=== PATIENT | male | born 1990 | race African-American/Black ===

== ENCOUNTER 2017-11-06 23:47 | Emergency (ER) | payer BC, SELFPAY ==
[2017-11-07 00:15] LABS: #Basophils 0.1 thou/uL (0.0-0.2); #Eosinphils 0.5 thou/uL (0.0-0.7); #Lymphocytes 2.5 thou/uL (1.20-3.40); #Monocytes 0.6 thou/uL (0.11-0.59); #Neutrophils 4.4 thou/uL (1.40-6.50); %Basophils 0.9 % (0.0-1.0); %Lymphocytes 30.8 % (21.0-51.0); %Monocytes 7.7 % (0.0-10.0); %Neutrophils 54.7 % (42.0-75.0); Hemoglobin 13.5 g/dL (14.0-18.0); Mean Corpuscular HGB CONC 34.6 g/dL (32.0-36.0); Mean Corpuscular Hemoglobin 30.4 pg (27.0-31.0); Mean Corpuscular Volume 87.8 fl (80.0-94.0); Mean Platelet Volume 6.4 fL (7.4-10.4); Platelet Count 368 thou/uL (130-400); RBC Distribution Width 11.5 % (11.5-14.5); Red Blood Cell (RBC) Count 4.43 mill/uL (4.70-6.10)
[2017-11-07 00:40] LABS: Anion Gap 14 mmol/L (10-20); BUN (Urea Nitrogen) 13 mg/dL (8.9-20.6); Calc. Creatinine Clearance 0 mL/min (70-130); Calcium 10.3 mg/dL (7.8-10.44); Carbon Dioxide 27 mmol/L (22-29); Chloride 95 mmol/L (98-107); Estimated GFR-MDRD Greater than 90; Glucose 409 mg/dL (70-105); Potassium 4.3 mmol/L (3.5-5.1); Sodium 132 mmol/L (136-145)
[2017-11-07] MEDS ORDERED: Insulin Regular 300 UNITS/3 ML VIAL ONE (00:59)
== END 2017-11-07 03:15 | disposition home or self-care (01) ==
LOC: ERS 23:47
DX: E11.65 Type 2 diabetes mellitus with hyperglycemia (principal); E86.0 Dehydration; Z79.4 Long term (current) use of insulin; Z79.899 Other long term (current) drug therapy
CPT/HCPCS: 36415; 36416; 80048; 82010; 85025; 96360; 96361; 96372; J1815

== ENCOUNTER 2017-11-08 12:17 | Emergency (ER) | payer BC ==
[2017-11-08 14:05] LABS: #Basophils 0.1 thou/uL (0.0-0.2); #Eosinphils 0.2 thou/uL (0.0-0.7); #Lymphocytes 1.8 thou/uL (1.20-3.40); #Monocytes 0.4 thou/uL (0.11-0.59); #Neutrophils 5.8 thou/uL (1.40-6.50); %Basophils 0.8 % (0.0-1.0); %Lymphocytes 21.3 % (21.0-51.0); %Monocytes 5.3 % (0.0-10.0); %Neutrophils 69.7 % (42.0-75.0); Hemoglobin 14.4 g/dL (14.0-18.0); Mean Corpuscular Volume 88.8 fl (80.0-94.0); Mean Platelet Volume 6.7 fL (7.4-10.4); Platelet Count 367 thou/uL (130-400); RBC Distribution Width 11.6 % (11.5-14.5); Red Blood Cell (RBC) Count 4.64 mill/uL (4.70-6.10); White Blood Cell (WBC) Count 8.3 thou/uL (4.8-10.8)
[2017-11-08 14:24] LABS: ALT (SGPT) 39 U/L (8-55); AST (SGOT) 27 U/L (5-34); Albumin 4.7 g/dL (3.5-5.0); Alkaline Phosphatase 99 U/L (40-150); Anion Gap 15 mmol/L (10-20); BUN (Urea Nitrogen) 13 mg/dL (8.9-20.6); Bilirubin, Total 0.7 mg/dL (0.2-1.2); Calc. Creatinine Clearance 0 mL/min (70-130); Calcium 10.7 mg/dL (7.8-10.44); Carbon Dioxide 24 mmol/L (22-29); Chloride 99 mmol/L (98-107); Estimated GFR-MDRD Greater than 90; Globulin 3.9 g/dL (2.4-3.5); Glucose 352 mg/dL (70-105); Potassium 4.6 mmol/L (3.5-5.1); Protein, Total 8.6 g/dL (6.0-8.3); Sodium 133 mmol/L (136-145)
--- NOTE | 2017-11-08 15:35 | RAD ---
PORTABLE CHEST: History: Chest pain. Comparison: 08-21-16 FINDINGS: Lung solis appear clear. No infiltrate identified. Heart and mediastinum are unremarkable. IMPRESSION: No acute process. POS: [facility]
[2017-11-08 15:53] LABS: CKMB 2.1 ng/mL (0-6.6); Troponin I Less than 0.010 ng/mL (< 0.028)
== END 2017-11-08 16:41 | disposition home or self-care (01) ==
LOC: ERS 12:17
DX: E11.65 Type 2 diabetes mellitus with hyperglycemia (principal); R07.89 Other chest pain; Z79.899 Other long term (current) drug therapy; Z79.4 Long term (current) use of insulin
CPT/HCPCS: 36415; 36416; 71045; 80053; 82553; 84484; 85025; 93005; 96360

== ENCOUNTER 2018-04-19 15:30 | Emergency (ER) | payer BC ==
[2018-04-19] MEDS ORDERED: Ketorolac Tromethamine 30 MG/ML VIAL ONE (16:35)
== END 2018-04-19 17:22 | disposition home or self-care (01) ==
LOC: ERS 15:30
DX: R51 Headache (principal); E11.9 Type 2 diabetes mellitus without complications; Z79.4 Long term (current) use of insulin
CPT/HCPCS: 96372; J1885

== ENCOUNTER 2018-06-12 15:48 | Emergency (ER) | payer BC, SELFPAY ==
[2018-06-12] MEDS ORDERED: Metoclopramide HCl 10 MG/2 ML VIAL ONE (16:27)
[2018-06-12] MEDS ORDERED: Ketorolac Tromethamine 30 MG/ML VIAL ONE (16:27)
[2018-06-12] MEDS ORDERED: Acetaminophen 500 MG TAB ONE (16:27)
[2018-06-12] MEDS ORDERED: diphenhydrAMINE 50 MG/ML VIAL ONE (16:27)
== END 2018-06-12 17:36 | disposition home or self-care (01) ==
LOC: ERS 15:48
DX: G43.909 Migraine, unspecified, not intractable, without status migrainosus (principal); E11.9 Type 2 diabetes mellitus without complications; Z79.4 Long term (current) use of insulin; Z79.899 Other long term (current) drug therapy
CPT/HCPCS: 96365; 96375; J1200; J1885; J2765

== ENCOUNTER 2018-07-13 15:03 | Emergency (ER) | payer SELFPAY ==
[2018-07-13] MEDS ORDERED: Ondansetron ODT 4 MG TAB ONE (16:25)
[2018-07-13 16:37] LABS: #Basophils 0.1 thou/uL (0.0-0.2); #Eosinphils 0.2 thou/uL (0.0-0.7); #Lymphocytes 1.9 thou/uL (1.20-3.40); #Monocytes 0.5 thou/uL (0.11-0.59); #Neutrophils 4.4 thou/uL (1.40-6.50); %Basophils 1.4 % (0.0-1.0); %Eosinophils 2.4 % (0.0-10.0); %Lymphocytes 27.4 % (21.0-51.0); %Monocytes 7.3 % (0.0-10.0); %Neutrophils 61.6 % (42.0-75.0); Hemoglobin 14.7 g/dL (14.0-18.0); Mean Corpuscular HGB CONC 32.9 g/dL (32.0-36.0); Mean Platelet Volume 7.1 fL (7.4-10.4); Platelet Count 329 thou/uL (130-400); Red Blood Cell (RBC) Count 5.08 mill/uL (4.70-6.10); White Blood Cell (WBC) Count 7.1 thou/uL (4.8-10.8)
[2018-07-13 16:49] LABS: ALT (SGPT) 39 U/L (8-55); AST (SGOT) 21 U/L (5-34); Albumin 4.7 g/dL (3.5-5.0); Alkaline Phosphatase 108 U/L (40-150); Anion Gap 13 mmol/L (10-20); BUN (Urea Nitrogen) 12 mg/dL (8.9-20.6); Bilirubin, Total 0.7 mg/dL (0.2-1.2); Calc. Creatinine Clearance 0 mL/min (70-130); Calcium 10.5 mg/dL (7.8-10.44); Carbon Dioxide 28 mmol/L (22-29); Chloride 93 mmol/L (98-107); Estimated GFR-MDRD 79; Globulin 3.6 g/dL (2.4-3.5); Protein, Total 8.3 g/dL (6.0-8.3); Sodium 130 mmol/L (136-145)
[2018-07-13 16:51] LABS: Glucose 566 mg/dL (70-105)
[2018-07-13] MEDS ORDERED: Ibuprofen 200 MG TAB ONE (17:26)
== END 2018-07-13 17:31 | disposition home or self-care (01) ==
LOC: ERS 15:03
DX: J02.9 Acute pharyngitis, unspecified (principal); E11.9 Type 2 diabetes mellitus without complications; Z79.4 Long term (current) use of insulin; Z79.899 Other long term (current) drug therapy
CPT/HCPCS: 36415; 80053; 85025; 99284; Q0162

== ENCOUNTER 2018-07-15 07:43 | Emergency (ER) | payer SELFPAY | END 2018-07-15 08:42 | disposition home or self-care (01) | LOC: ERS 07:43 | DX: J02.9 Acute pharyngitis, unspecified (principal); E11.9 Type 2 diabetes mellitus without complications; Z79.4 Long term (current) use of insulin | CPT/HCPCS: 99283 ==

== ENCOUNTER 2021-02-22 12:18 | Emergency (ER) | payer OTHER ==
[2021-02-22 22:00] LABS: SARS-CoV-2 PCR by NAA Not Detected (NotDetected)
== END 2021-02-22 13:11 | disposition home or self-care (01) ==
LOC: ERS 12:18
DX: R05 Cough (principal); Z20.822 Contact with and (suspected) exposure to COVID-19; E11.9 Type 2 diabetes mellitus without complications
CPT/HCPCS: 99283; U0003; U0005

== ENCOUNTER 2021-08-11 00:18 | Emergency (ER) | payer OTHER, SELFPAY | END 2021-08-11 03:05 | disposition home or self-care (01) | LOC: ERS 00:18 | DX: E10.65 Type 1 diabetes mellitus with hyperglycemia (principal); G62.9 Polyneuropathy, unspecified | CPT/HCPCS: 36416; 99284 ==

== ENCOUNTER 2021-11-02 20:47 | Inpatient (IN) | payer SELFPAY ==
[2021-11-02 23:05] LABS: SARS-CoV-2 NAA Rapid Test Not Detected (NotDetected)
[2021-11-02 23:43] LABS: #Basophils 0.1 thou/uL (0.0-0.2); #Eosinphils 0.1 thou/uL (0.0-0.7); #Lymphocytes 2.3 thou/uL (1.20-3.40); #Monocytes 0.7 thou/uL (0.11-0.59); #Neutrophils 6.7 thou/uL (1.40-6.50); %Basophils 0.6 % (0.0-1.0); %Eosinophils 0.8 % (0.0-10.0); %Lymphocytes 23.1 % (21.0-51.0); %Monocytes 7.2 % (0.0-10.0); %Neutrophils 68.2 % (42.0-75.0); Hemoglobin 12.6 g/dL (14.0-18.0); Mean Corpuscular HGB CONC 33.4 g/dL (32.0-36.0); Mean Corpuscular Hemoglobin 30.6 pg (27.0-31.0); Mean Corpuscular Volume 91.8 fL (78.0-98.0); Mean Platelet Volume 6.5 fL (7.4-10.4); Platelet Count 297 thou/uL (130-400); RBC Distribution Width 11.7 % (11.5-14.5); Red Blood Cell (RBC) Count 4.12 mill/uL (4.70-6.10); White Blood Cell (WBC) Count 9.8 thou/uL (4.8-10.8)
[2021-11-03 00:06] LABS: ALT (SGPT) 36 U/L (8-55); AST (SGOT) 18 U/L (5-34); Alkaline Phosphatase 85 U/L (40-110); Anion Gap 14 mmol/L (10-20); BUN (Urea Nitrogen) 22 mg/dL (8.9-20.6); Calc. Creatinine Clearance 0 mL/min (70-130); Calcium 8.6 mg/dL (7.8-10.44); Carbon Dioxide 24 mmol/L (22-29); Chloride 106 mmol/L (98-107); Globulin 2.9 g/dL (2.4-3.5); Glucose 143 mg/dL (70-105); Potassium 3.9 mmol/L (3.5-5.1); Protein, Total 6.9 g/dL (6.0-8.3); Sodium 140 mmol/L (136-145)
[2021-11-03 02:16] VITALS: BMI 29.0
[2021-11-03 03:09] LABS: Troponin I 0.015 ng/mL (< 0.028)
[2021-11-03 04:44] LABS: #Basophils 0.1 thou/uL (0.0-0.2); #Eosinphils 0.1 thou/uL (0.0-0.7); #Monocytes 0.6 thou/uL (0.11-0.59); #Neutrophils 6.3 thou/uL (1.40-6.50); %Basophils 0.6 % (0.0-1.0); %Lymphocytes 21.6 % (21.0-51.0); %Monocytes 6.7 % (0.0-10.0); %Neutrophils 70.2 % (42.0-75.0); Mean Corpuscular HGB CONC 33.9 g/dL (32.0-36.0); Mean Corpuscular Hemoglobin 31.1 pg (27.0-31.0); Mean Corpuscular Volume 91.6 fL (78.0-98.0); Mean Platelet Volume 6.4 fL (7.4-10.4); Platelet Count 285 thou/uL (130-400); RBC Distribution Width 11.6 % (11.5-14.5); Red Blood Cell (RBC) Count 3.86 mill/uL (4.70-6.10)
[2021-11-03 05:00] LABS: Anion Gap 13 mmol/L (10-20); BUN (Urea Nitrogen) 22 mg/dL (8.9-20.6); Calc. Creatinine Clearance 111 mL/min (70-130); Calcium 8.6 mg/dL (7.8-10.44); Carbon Dioxide 24 mmol/L (22-29); Chloride 104 mmol/L (98-107); Glucose 222 mg/dL (70-105); Potassium 3.8 mmol/L (3.5-5.1); Sodium 137 mmol/L (136-145)
[2021-11-03 05:05] LABS: Troponin I 0.015 ng/mL (< 0.028)
[2021-11-03] MEDS ORDERED: HumaLOG 300 UNITS/3 ML VIAL SC PRN (05:59)
[2021-11-03] MEDS ORDERED: Dextrose 5% in Water 1,000 ML IV PRN (05:59)
[2021-11-03] MEDS ORDERED: Dextrose 50% Abboject 50 ML SYRINGE SLOW IVP PRN (05:59)
[2021-11-03] MEDS: HumaLOG 300 UNITS/3 ML VIAL SC PRN ×3 (06:19→22:41)
[2021-11-03] MEDS ORDERED: Acetaminophen 325 MG TAB PO PRN (07:23)
[2021-11-03] MEDS ORDERED: Furosemide 20 MG/2 ML VIAL SLOW IVP SCH (07:30)
[2021-11-03] MEDS: Aspirin 81 mg Enteric Coated Tablet PO SCH (07:58)
[2021-11-03] MEDS: Carvedilol 3.125 MG TAB PO SCH ×2 (07:58→16:26)
[2021-11-03] MEDS: Insulin Glargine 30 UNITS/0.3 ML VIAL SC SCH (08:00)
[2021-11-03] MEDS: Enoxaparin Sodium 40 MG/0.4 ML SYRINGE SC SCH (08:01)
[2021-11-03 08:59] LABS: Amphetamine Not Detected (NotDetected); Barbiturates Screen Not Detected (NotDetected); Benzodiazepine Screen Not Detected (NotDetected); Cocaine Metabolite Screen Not Detected (NotDetected); Methadone Not Detected (NotDetected); Methamphetamine Not Detected (NotDetected); Opiate Screen Not Detected (NotDetected); Oxycodone Screen Not Detected (NotDetected); Phencyclidine (PCP) Not Detected (NotDetected); THC/Cannabinoid Screen Not Detected (NotDetected); Tricyclic Screen Not Detected (NotDetected)
[2021-11-03] MEDS: Atorvastatin Calcium 40 MG TAB PO SCH (19:31)
[2021-11-04 05:08] LABS: Anion Gap 12 mmol/L (10-20); BUN (Urea Nitrogen) 19 mg/dL (8.9-20.6); Calc. Creatinine Clearance 97 mL/min (70-130); Calcium 8.6 mg/dL (7.8-10.44); Carbon Dioxide 27 mmol/L (22-29); Cardiac Risk 5.9 (Less than 4.5); Chloride 103 mmol/L (98-107); Cholesterol 212 mg/dl (< 200 Desired); Glucose 189 mg/dL (70-105); HDL Cholesterol 36 mg/dL (>60 Neg Risk); LDL Cholesterol, Calculated 151 mg/dL; Potassium 3.8 mmol/L (3.5-5.1); Sodium 138 mmol/L (136-145); Triglycerides 126 mg/dL (Less than 150)
[2021-11-04] MEDS: HumaLOG 300 UNITS/3 ML VIAL SC PRN ×3 (06:14→21:28)
[2021-11-04] MEDS: Carvedilol 3.125 MG TAB PO SCH ×2 (08:13→15:59)
[2021-11-04] MEDS: Aspirin 81 mg Enteric Coated Tablet PO SCH (08:13)
[2021-11-04] MEDS: Furosemide 20 MG/2 ML VIAL SLOW IVP SCH (08:13)
[2021-11-04] MEDS: Enoxaparin Sodium 40 MG/0.4 ML SYRINGE SC SCH (08:13)
[2021-11-04] MEDS: Insulin Glargine 30 UNITS/0.3 ML VIAL SC SCH (08:13)
[2021-11-04] MEDS: Atorvastatin Calcium 40 MG TAB PO SCH (21:27)
[2021-11-05 06:11] LABS: Anion Gap 12 mmol/L (10-20); BUN (Urea Nitrogen) 19 mg/dL (8.9-20.6); Calc. Creatinine Clearance 102 mL/min (70-130); Calcium 8.8 mg/dL (7.8-10.44); Carbon Dioxide 29 mmol/L (22-29); Chloride 101 mmol/L (98-107); Glucose 248 mg/dL (70-105); Potassium 3.8 mmol/L (3.5-5.1); Sodium 138 mmol/L (136-145)
[2021-11-05] MEDS: HumaLOG 300 UNITS/3 ML VIAL SC PRN ×4 (06:31→21:07)
[2021-11-05] MEDS: Carvedilol 3.125 MG TAB PO SCH ×2 (08:09→16:35)
[2021-11-05] MEDS: Enoxaparin Sodium 40 MG/0.4 ML SYRINGE SC SCH (08:09)
[2021-11-05] MEDS: Furosemide 20 MG/2 ML VIAL SLOW IVP SCH (08:09)
[2021-11-05] MEDS: Aspirin 81 mg Enteric Coated Tablet PO SCH (08:09)
[2021-11-05] MEDS: Insulin Glargine 30 UNITS/0.3 ML VIAL SC SCH (08:18)
[2021-11-05 13:44] LABS: Hemoglobin A1c 10.6 % (4.0-6.0)
[2021-11-05] MEDS: Atorvastatin Calcium 40 MG TAB PO SCH (21:07)
[2021-11-06 08:41] LABS: Anion Gap 11 mmol/L (10-20); BUN (Urea Nitrogen) 18 mg/dL (8.9-20.6); Calc. Creatinine Clearance 106 mL/min (70-130); Calcium 8.7 mg/dL (7.8-10.44); Carbon Dioxide 27 mmol/L (22-29); Chloride 102 mmol/L (98-107); Glucose 294 mg/dL (70-105); Potassium 4.1 mmol/L (3.5-5.1); Sodium 136 mmol/L (136-145)
[2021-11-06] MEDS: Aspirin 81 mg Enteric Coated Tablet PO SCH (10:28)
[2021-11-06] MEDS: Carvedilol 3.125 MG TAB PO SCH ×2 (10:28→18:24)
[2021-11-06] MEDS: Furosemide 20 MG/2 ML VIAL SLOW IVP SCH (10:30)
[2021-11-06] MEDS: Enoxaparin Sodium 40 MG/0.4 ML SYRINGE SC SCH (11:07)
[2021-11-06] MEDS: Insulin Glargine 30 UNITS/0.3 ML VIAL SC SCH (11:07)
[2021-11-06] MEDS ORDERED: Iopamidol 370 76% 100 ML VIAL ONE (13:30)
[2021-11-06] MEDS ORDERED: Midazolam HCl 2 mg/2 ml Vial ONE (13:47)
[2021-11-06] MEDS ORDERED: Fentanyl 100 MCG/2 ML VIAL ONE (13:47)
[2021-11-06] MEDS ORDERED: Sodium Chloride 0.9% 1,000 ML IV SCH (14:00)
[2021-11-06] MEDS ORDERED: Sodium Chloride 0.9% 200 ML IV PRN (14:21)
[2021-11-06] MEDS ORDERED: Acetaminophen/Codeine 30-300mg Tablet PO PRN (14:21)
[2021-11-06] MEDS ORDERED: Sodium Chloride 0.9% 250 ML IV SCH (14:30)
[2021-11-06] MEDS: Atorvastatin Calcium 40 MG TAB PO SCH (20:43)
[2021-11-07 07:34] VITALS: TEMP 97.6
[2021-11-07] MEDS ORDERED: Furosemide 20 MG TAB PO SCH (09:00)
[2021-11-07] MEDS ORDERED: Lisinopril 2.5 MG TAB PO SCH (09:00)
[2021-11-07] MEDS: Aspirin 81 mg Enteric Coated Tablet PO SCH (09:53)
[2021-11-07] MEDS: Carvedilol 3.125 MG TAB PO SCH (09:53)
[2021-11-07] MEDS: Insulin Glargine 30 UNITS/0.3 ML VIAL SC SCH (09:54)
[2021-11-07] MEDS: Enoxaparin Sodium 40 MG/0.4 ML SYRINGE SC SCH (09:54)
[2021-11-07] MEDS ORDERED: Furosemide 40 MG/4 ML VIAL SLOW IVP SCH (11:15)
[2021-11-07 12:45] VITALS: BP 99/63
== END 2021-11-07 16:00 | disposition home or self-care (01) | DRG 287 ==
LOC: ERS 20:47 → 2SW 11-03 01:04
PROVIDERS: ADMIT Hospitalist; ATTEND Hospitalist
PROC: 4A023N7 Measurement of Cardiac Sampling and Pressure, Left Heart, Percutaneous Approach (ICD-10-PCS; principal; 2021-11-06)
PROC: B2111ZZ Fluoroscopy of Multiple Coronary Arteries using Low Osmolar Contrast (ICD-10-PCS; 2021-11-06)
PROC: B2151ZZ Fluoroscopy of Left Heart using Low Osmolar Contrast (ICD-10-PCS; 2021-11-06)
DX: I50.23 Acute on chronic systolic (congestive) heart failure (principal); I42.0 Dilated cardiomyopathy; I25.10 Atherosclerotic heart disease of native coronary artery without angina pectoris; Z20.822 Contact with and (suspected) exposure to COVID-19; E11.9 Type 2 diabetes mellitus without complications; Z79.84 Long term (current) use of oral hypoglycemic drugs; Z79.4 Long term (current) use of insulin; Z83.3 Family history of diabetes mellitus
CPT/HCPCS: 36415; 36416; 71045; 80048; 80053; 80061; 80306; 83036; 83880; 84484; 85025; 93005; 93306; 93458; 93798; 99152; J1650; J1815; J1940; J2250; J3010; J7050

== ENCOUNTER 2021-11-21 06:42 | Emergency (ER) | payer SELFPAY | END 2021-11-21 08:03 | disposition home or self-care (01) | LOC: ERS 06:42 | DX: E11.42 Type 2 diabetes mellitus with diabetic polyneuropathy (principal); Z79.84 Long term (current) use of oral hypoglycemic drugs; Z79.4 Long term (current) use of insulin | CPT/HCPCS: 99283 ==

== ENCOUNTER 2022-02-19 11:31 | Emergency (ER) | payer SELFPAY | END 2022-02-19 12:20 | disposition home or self-care (01) | LOC: ERS 11:31 | DX: B34.9 Viral infection, unspecified (principal); Z20.822 Contact with and (suspected) exposure to COVID-19; E11.9 Type 2 diabetes mellitus without complications; I50.9 Heart failure, unspecified; Z79.4 Long term (current) use of insulin; Z79.899 Other long term (current) drug therapy | CPT/HCPCS: 99283; U0003; U0005 ==

== ENCOUNTER 2022-03-20 05:58 | Inpatient (IN) | payer SELFPAY ==
[2022-03-20 07:09] LABS: #Eosinphils 0.1 thou/uL (0.0-0.7); #Monocytes 0.6 thou/uL (0.11-0.59); %Basophils 0.7 % (0.0-1.0); %Eosinophils 1.3 % (0.0-10.0); %Lymphocytes 29.4 % (21.0-51.0); %Monocytes 8.7 % (0.0-10.0); Hemoglobin 12.3 g/dL (14.0-18.0); Mean Corpuscular HGB CONC 32.4 g/dL (32.0-36.0); Mean Corpuscular Hemoglobin 30.7 pg (27.0-31.0); Mean Corpuscular Volume 94.5 fL (78.0-98.0); Mean Platelet Volume 7.5 fL (7.4-10.4); Platelet Count 301 thou/uL (130-400); White Blood Cell (WBC) Count 6.7 thou/uL (4.8-10.8)
[2022-03-20 07:27] LABS: ALT (SGPT) 90 U/L (8-55); AST (SGOT) 45 U/L (5-34); Alkaline Phosphatase 338 U/L (40-110); Anion Gap 12 mmol/L (10-20); BUN (Urea Nitrogen) 24 mg/dL (8.9-20.6); Bilirubin, Total 1.5 mg/dL (0.2-1.2); Calc. Creatinine Clearance 0 mL/min (70-130); Calcium 8.8 mg/dL (7.8-10.44); Carbon Dioxide 27 mmol/L (22-29); Chloride 104 mmol/L (98-107); Estimated GFR 69; Globulin 2.8 g/dL (2.4-3.5); Glucose 112 mg/dL (70-105); Potassium 4.4 mmol/L (3.5-5.1); Protein, Total 6.8 g/dL (6.0-8.3); Sodium 139 mmol/L (136-145)
[2022-03-20] MEDS ORDERED: Nitroglycerin 2% Ointment 1 INCH/1 GM Packet ONE (08:10)
[2022-03-20] MEDS ORDERED: Furosemide 40 MG/4 ML VIAL ONE (08:10)
[2022-03-20] MEDS ORDERED: Electrolyte Replacement Protocol 1 EACH FS SCH (10:30)
[2022-03-20] MEDS ORDERED: Ondansetron PF 4 MG/2 ML Vial IVP PRN ×2 (10:30→12:22)
[2022-03-20] MEDS ORDERED: Ondansetron ODT 4 MG TAB SL PRN (10:30)
[2022-03-20] MEDS ORDERED: Insulin Regular 300 UNITS/3 ML VIAL SC PRN (10:39)
[2022-03-20] MEDS ORDERED: Dextrose 50% Abboject 50 ML SYRINGE SLOW IVP PRN (10:39)
[2022-03-20] MEDS ORDERED: Dextrose 5% in Water 1,000 ML IV PRN (10:39)
[2022-03-20] MEDS ORDERED: Electrolyte Replacement Protocol FS PRN (10:45)
[2022-03-20 11:05] LABS: Magnesium 1.5 mg/dL (1.6-2.6)
[2022-03-20 11:08] LABS: Troponin I 0.018 ng/mL (< 0.028)
[2022-03-20 11:13] VITALS: BMI 27.9
[2022-03-20] MEDS ORDERED: Ondansetron ODT 4 MG TAB PO PRN (12:22)
[2022-03-20] MEDS ORDERED: Calcium Carbonate 500 MG ChewTAB PO PRN (12:22)
[2022-03-20] MEDS ORDERED: Senokot S 8.6-50 MG TAB PO PRN (12:22)
[2022-03-20] MEDS ORDERED: Magnesium Sulfate In Water 4 GM in Premix Bag 1 BAG IVPB SCH (12:30)
[2022-03-20] MEDS ORDERED: Insulin Glargine 30 UNITS/0.3 ML VIAL SC SCH (12:30)
[2022-03-20 13:27] LABS: Troponin I 0.019 ng/mL (< 0.028)
[2022-03-20] MEDS: Furosemide 40 MG/4 ML VIAL SLOW IVP SCH (15:02)
[2022-03-20] MEDS: Insulin Regular 300 UNITS/3 ML VIAL SC PRN (17:19)
[2022-03-21] MEDS: Furosemide 40 MG/4 ML VIAL SLOW IVP SCH ×2 (05:56→14:58)
[2022-03-21 06:18] LABS: ALT (SGPT) 64 U/L (8-55); AST (SGOT) 27 U/L (5-34); Albumin 3.5 g/dL (3.5-5.0); Alkaline Phosphatase 277 U/L (40-110); Anion Gap 12 mmol/L (10-20); BUN (Urea Nitrogen) 25 mg/dL (8.9-20.6); Bilirubin, Total 1.3 mg/dL (0.2-1.2); Calc. Creatinine Clearance 71 mL/min (70-130); Calcium 8.9 mg/dL (7.8-10.44); Carbon Dioxide 28 mmol/L (22-29); Chloride 102 mmol/L (98-107); Estimated GFR 63; Globulin 3.1 g/dL (2.4-3.5); Glucose 185 mg/dL (70-105); Magnesium 1.8 mg/dL (1.6-2.6); Protein, Total 6.6 g/dL (6.0-8.3); Sodium 138 mmol/L (136-145)
[2022-03-21] MEDS: Insulin Glargine 30 UNITS/0.3 ML VIAL SC SCH (08:40)
[2022-03-21] MEDS ORDERED: Magnesium 2 GM/50 ML(in water) 2 GM in Premix Bag 1 BAG IVPB SCH (09:00)
[2022-03-21] MEDS ORDERED: Aspirin 81 mg Enteric Coated Tablet PO SCH (09:00)
[2022-03-21] MEDS: Insulin Regular 300 UNITS/3 ML VIAL SC PRN (17:05)
[2022-03-21] MEDS: Carvedilol 3.125 MG TAB PO SCH (17:06)
[2022-03-21] MEDS ORDERED: Acetaminophen 325 MG TAB PO PRN (18:08)
[2022-03-22 05:00] LABS: #Basophils 0.1 thou/uL (0.0-0.2); #Eosinphils 0.1 thou/uL (0.0-0.7); #Lymphocytes 1.8 thou/uL (1.20-3.40); #Monocytes 0.8 thou/uL (0.11-0.59); #Neutrophils 5.2 thou/uL (1.40-6.50); %Basophils 0.8 % (0.0-1.0); %Eosinophils 1.5 % (0.0-10.0); %Lymphocytes 22.7 % (21.0-51.0); %Monocytes 10.1 % (0.0-10.0); Hemoglobin 13.1 g/dL (14.0-18.0); Mean Corpuscular HGB CONC 31.7 g/dL (32.0-36.0); Mean Corpuscular Hemoglobin 29.6 pg (27.0-31.0); Mean Corpuscular Volume 93.5 fL (78.0-98.0); Mean Platelet Volume 7.1 fL (7.4-10.4); Platelet Count 300 thou/uL (130-400); RBC Distribution Width 12.9 % (11.5-14.5); Red Blood Cell (RBC) Count 4.42 mill/uL (4.70-6.10); White Blood Cell (WBC) Count 7.9 thou/uL (4.8-10.8)
[2022-03-22 05:16] LABS: Anion Gap 15 mmol/L (10-20); BUN (Urea Nitrogen) 25 mg/dL (8.9-20.6); Calc. Creatinine Clearance 81 mL/min (70-130); Calcium 9.1 mg/dL (7.8-10.44); Carbon Dioxide 26 mmol/L (22-29); Chloride 99 mmol/L (98-107); Estimated GFR 74; Glucose 166 mg/dL (70-105); Magnesium 1.8 mg/dL (1.6-2.6); Potassium 3.9 mmol/L (3.5-5.1); Sodium 136 mmol/L (136-145)
[2022-03-22] MEDS: Insulin Regular 300 UNITS/3 ML VIAL SC PRN (05:40)
[2022-03-22] MEDS: Furosemide 40 MG/4 ML VIAL SLOW IVP SCH (05:40)
[2022-03-22] MEDS: Carvedilol 3.125 MG TAB PO SCH (08:24)
[2022-03-22] MEDS: Insulin Glargine 30 UNITS/0.3 ML VIAL SC SCH (08:24)
[2022-03-22 08:25] VITALS: TEMP 98.1
[2022-03-22] MEDS ORDERED: Magnesium 2 GM/50 ML(in water) 2 GM in Premix Bag 1 BAG IVPB SCH (09:00)
[2022-03-22] MEDS ORDERED: Aspirin 81 mg Enteric Coated Tablet PO SCH (09:00)
[2022-03-22 10:20] VITALS: BP 101/73
== END 2022-03-22 11:30 | disposition home or self-care (01) | DRG 292 ==
LOC: ERS 05:58 → 2SW 09:24 → OBSVTOIN 03-22 09:10
PROVIDERS: ADMIT Internal Medicine; ATTEND Internal Medicine
DX: I50.23 Acute on chronic systolic (congestive) heart failure (principal); I42.8 Other cardiomyopathies; N17.9 Acute kidney failure, unspecified; E11.22 Type 2 diabetes mellitus with diabetic chronic kidney disease; N18.2 Chronic kidney disease, stage 2 (mild); I25.10 Atherosclerotic heart disease of native coronary artery without angina pectoris; E83.42 Hypomagnesemia
CPT/HCPCS: 36415; 36416; 71045; 80048; 80053; 83690; 83735; 83880; 84484; 85025; 93005; 93798; 96365; 96366; 96374; 96375; 96376; G0378; J1815; J1940; J3475; U0003; U0005

== ENCOUNTER 2022-04-15 16:03 | Emergency (ER) | payer SELFPAY ==
[2022-04-15 16:30] LABS: #Eosinphils 0.1 thou/uL (0.0-0.7); #Monocytes 0.4 thou/uL (0.11-0.59); #Neutrophils 4.6 thou/uL (1.40-6.50); %Basophils 0.1 % (0.0-1.0); %Eosinophils 0.8 % (0.0-10.0); %Lymphocytes 28.3 % (21.0-51.0); %Neutrophils 64.8 % (42.0-75.0); Hemoglobin 12.5 g/dL (14.0-18.0); Mean Corpuscular Hemoglobin 30.1 pg (27.0-31.0); Mean Corpuscular Volume 94.1 fl (78.0-98.0); Mean Platelet Volume 7.3 fL (7.4-10.4); Platelet Count 273 thou/uL (130-400); RBC Distribution Width 12.7 % (11.5-14.5); Red Blood Cell (RBC) Count 4.17 mill/uL (4.70-6.10); White Blood Cell (WBC) Count 7.1 thou/uL (4.8-10.8)
[2022-04-15 16:49] LABS: ALT (SGPT) 85 U/L (8-55); AST (SGOT) 50 U/L (5-34); Albumin 3.8 g/dL (3.5-5.0); Alkaline Phosphatase 294 U/L (40-110); Anion Gap 12 mmol/L (10-20); BUN (Urea Nitrogen) 31 mg/dL (8.9-20.6); Bilirubin, Total 1.1 mg/dL (0.2-1.2); Calc. Creatinine Clearance 0 mL/min (70-130); Carbon Dioxide 27 mmol/L (22-29); Chloride 105 mmol/L (98-107); Estimated GFR 56; Globulin 3.3 g/dL (2.4-3.5); Glucose 189 mg/dL (70-105); Potassium 4.6 mmol/L (3.5-5.1); Protein, Total 7.1 g/dL (6.0-8.3); Sodium 139 mmol/L (136-145)
[2022-04-15] MEDS ORDERED: Furosemide 40 MG TAB ONE (20:15)
== END 2022-04-15 20:36 | disposition home or self-care (01) ==
LOC: ERS 16:03
DX: R60.0 Localized edema (principal); I50.9 Heart failure, unspecified; E11.9 Type 2 diabetes mellitus without complications; E87.70 Fluid overload, unspecified; Z79.4 Long term (current) use of insulin; Z79.899 Other long term (current) drug therapy
CPT/HCPCS: 36415; 71045; 80053; 83880; 85025; 93005

== ENCOUNTER 2022-04-28 15:34 | Emergency (ER) | payer SELFPAY ==
[2022-04-28 16:42] LABS: #Eosinphils 0.1 thou/uL (0.0-0.7); #Lymphocytes 1.7 thou/uL (1.20-3.40); #Monocytes 0.6 thou/uL (0.11-0.59); #Neutrophils 3.8 thou/uL (1.40-6.50); %Basophils 0.2 % (0.0-1.0); %Lymphocytes 27.9 % (21.0-51.0); %Monocytes 9.4 % (0.0-10.0); %Neutrophils 61.5 % (42.0-75.0); Hemoglobin 12.7 g/dL (14.0-18.0); Mean Corpuscular HGB CONC 33.4 g/dL (32.0-36.0); Mean Corpuscular Hemoglobin 31.3 pg (27.0-31.0); Mean Corpuscular Volume 93.9 fl (78.0-98.0); Mean Platelet Volume 7.3 fL (7.4-10.4); Platelet Count 248 10x3/uL (130-400); RBC Distribution Width 12.9 % (11.5-14.5); Red Blood Cell (RBC) Count 4.06 mill/uL (4.70-6.10); White Blood Cell (WBC) Count 6.2 10x3/uL (4.8-10.8)
[2022-04-28 17:11] LABS: Anion Gap 13 mmol/L (10-20); BUN (Urea Nitrogen) 37 mg/dL (8.9-20.6); Bilirubin, Total 1.6 mg/dL (0.2-1.2); Calc. Creatinine Clearance 0 mL/min (70-130); Calcium 8.8 mg/dL (7.8-10.44); Carbon Dioxide 26 mmol/L (22-29); Chloride 101 mmol/L (98-107); Estimated GFR 66; Glucose 251 mg/dL (70-105); Potassium 4.2 mmol/L (3.5-5.1); Sodium 136 mmol/L (136-145)
[2022-04-28 17:12] LABS: ALT (SGPT) 79 U/L (8-55); AST (SGOT) 47 U/L (5-34); Albumin 3.6 g/dL (3.5-5.0); Alkaline Phosphatase 273 U/L (40-110); Globulin 3.1 g/dL (2.4-3.5); Protein, Total 6.7 g/dL (6.0-8.3)
[2022-04-28] MEDS ORDERED: Furosemide 40 MG TAB ONE (19:00)
== END 2022-04-28 19:45 | disposition home or self-care (01) ==
LOC: ERS 15:34
DX: R60.0 Localized edema (principal); E11.9 Type 2 diabetes mellitus without complications
CPT/HCPCS: 36415; 71045; 80053; 83880; 84484; 85025; 93005

== ENCOUNTER 2022-05-20 16:41 | Emergency (ER) | payer SELFPAY ==
[2022-05-20 19:00] LABS: SARS-CoV-2 NAA Rapid Test Not Detected (NotDetected)
== END 2022-05-20 19:53 | disposition home or self-care (01) ==
LOC: ERS 16:41
DX: R05.9 Cough, unspecified (principal); I50.9 Heart failure, unspecified; E11.9 Type 2 diabetes mellitus without complications; Z20.822 Contact with and (suspected) exposure to COVID-19
CPT/HCPCS: 71045

== ENCOUNTER 2022-05-26 13:47 | Inpatient (IN) | payer SELFPAY ==
[2022-05-26 17:07] LABS: ALT (SGPT) 73 U/L (8-55); AST (SGOT) 46 U/L (5-34); Alkaline Phosphatase 440 U/L (40-110); Anion Gap 15 mmol/L (10-20); BUN (Urea Nitrogen) 35 mg/dL (8.9-20.6); Bilirubin, Total 1.6 mg/dL (0.2-1.2); Calc. Creatinine Clearance 0 mL/min (70-130); Calcium 9.5 mg/dL (7.8-10.44); Carbon Dioxide 27 mmol/L (22-29); Chloride 101 mmol/L (98-107); Estimated GFR 62; Globulin 4.1 g/dL (2.4-3.5); Glucose 248 mg/dL (70-105); Potassium 4.5 mmol/L (3.5-5.1); Protein, Total 8.1 g/dL (6.0-8.3); Sodium 138 mmol/L (136-145)
[2022-05-26] MEDS ORDERED: cefTRIAXone\\ROCEPHIN 1 GM VIAL ONE (17:38)
[2022-05-26 17:48] LABS: #Eosinphils 0.1 thou/uL (0.0-0.7); #Lymphocytes 1.9 thou/uL (1.20-3.40); #Monocytes 0.5 thou/uL (0.11-0.59); #Neutrophils 4.6 thou/uL (1.40-6.50); %Basophils 0.5 % (0.0-1.0); %Eosinophils 0.9 % (0.0-10.0); %Lymphocytes 26.7 % (21.0-51.0); %Monocytes 7.5 % (0.0-10.0); %Neutrophils 64.3 % (42.0-75.0); Hemoglobin 15.6 g/dL (14.0-18.0); Mean Corpuscular HGB CONC 31.4 g/dL (32.0-36.0); Mean Corpuscular Hemoglobin 29.5 pg (27.0-31.0); Mean Corpuscular Volume 93.8 fl (78.0-98.0); Platelet Count 327 10x3/uL (130-400); RBC Distribution Width 13.7 % (11.5-14.5); White Blood Cell (WBC) Count 7.2 10x3/uL (4.8-10.8)
[2022-05-26] MEDS ORDERED: Azithromycin 500 MG VIAL ONE (18:43)
[2022-05-26] MEDS ORDERED: Furosemide 40 MG/4 ML VIAL ONE (18:43)
[2022-05-26] MEDS ORDERED: Acetaminophen 325 MG TAB PO PRN (20:38)
[2022-05-26] MEDS ORDERED: Senokot S 8.6-50 MG TAB PO PRN (20:38)
[2022-05-26] MEDS ORDERED: Ondansetron ODT 4 MG TAB PO PRN (20:38)
[2022-05-26] MEDS ORDERED: Dextrose 50% Abboject 50 ML SYRINGE SLOW IVP PRN (20:39)
[2022-05-26] MEDS ORDERED: Dextrose 5% in Water 1,000 ML IV PRN (20:39)
[2022-05-26 21:23] LABS: Magnesium 1.6 mg/dL (1.6-2.6)
[2022-05-26] MEDS ORDERED: Famotidine 20 MG TAB ONE (21:33)
[2022-05-26] MEDS: Heparin 5,000 UNITS/ML VIAL SC SCH (22:17)
[2022-05-26] MEDS: Famotidine 20 MG TAB PO SCH (22:17)
[2022-05-27 04:16] LABS: #Basophils 0.1 thou/uL (0.0-0.2); #Eosinphils 0.1 thou/uL (0.0-0.7); #Monocytes 0.7 thou/uL (0.11-0.59); #Neutrophils 4.2 thou/uL (1.40-6.50); %Eosinophils 1.5 % (0.0-10.0); %Lymphocytes 28.3 % (21.0-51.0); %Monocytes 9.7 % (0.0-10.0); %Neutrophils 59.7 % (42.0-75.0); Hemoglobin 13.2 g/dL (14.0-18.0); Mean Corpuscular HGB CONC 32.6 g/dL (32.0-36.0); Mean Corpuscular Hemoglobin 30.3 pg (27.0-31.0); Mean Corpuscular Volume 92.9 fl (78.0-98.0); Mean Platelet Volume 7.9 fL (7.4-10.4); Platelet Count 266 10x3/uL (130-400); RBC Distribution Width 13.4 % (11.5-14.5); Red Blood Cell (RBC) Count 4.35 mill/uL (4.70-6.10); White Blood Cell (WBC) Count 7.1 10x3/uL (4.8-10.8)
[2022-05-27 04:34] LABS: ALT (SGPT) 63 U/L (8-55); AST (SGOT) 36 U/L (5-34); Albumin 3.5 g/dL (3.5-5.0); Alkaline Phosphatase 391 U/L (40-110); Anion Gap 13 mmol/L (10-20); BUN (Urea Nitrogen) 37 mg/dL (8.9-20.6); Bilirubin, Total 1.3 mg/dL (0.2-1.2); Calc. Creatinine Clearance 78 mL/min (70-130); Calcium 9.1 mg/dL (7.8-10.44); Carbon Dioxide 26 mmol/L (22-29); Chloride 100 mmol/L (98-107); Estimated GFR 65; Globulin 3.7 g/dL (2.4-3.5); Glucose 249 mg/dL (70-105); Potassium 4.1 mmol/L (3.5-5.1); Protein, Total 7.2 g/dL (6.0-8.3); Sodium 135 mmol/L (136-145)
[2022-05-27] MEDS ORDERED: Furosemide 40 MG/4 ML VIAL ONE (06:28)
[2022-05-27] MEDS: Furosemide 40 MG/4 ML VIAL SLOW IVP SCH ×2 (06:39→17:01)
[2022-05-27] MEDS ORDERED: Lisinopril 2.5 MG TAB PO SCH (09:00)
[2022-05-27] MEDS ORDERED: Aspirin Chewable 81 MG TAB ONE (09:36)
[2022-05-27] MEDS ORDERED: cefTRIAXone\\ROCEPHIN 1 GM VIAL ONE (09:36)
[2022-05-27] MEDS ORDERED: Famotidine 20 MG TAB ONE (09:36)
[2022-05-27] MEDS: Famotidine 20 MG TAB PO SCH ×2 (09:47→21:36)
[2022-05-27] MEDS: cefTRIAXone\\ROCEPHIN 1 GM in Sodium Chloride 0.9% 100 ML IVPB SCH (09:47)
[2022-05-27] MEDS: Heparin 5,000 UNITS/ML VIAL SC SCH ×3 (09:47→21:36)
[2022-05-27] MEDS: Aspirin Chewable 81 MG TAB PO SCH (09:47)
[2022-05-27] MEDS: Doxycycline 100 MG CAP PO SCH ×2 (09:47→21:36)
[2022-05-27] MEDS ORDERED: Carvedilol 6.25 MG TAB PO SCH (10:30)
[2022-05-27] MEDS ORDERED: HumaLOG 300 UNITS/3 ML VIAL ONE (11:00)
[2022-05-27] MEDS: HumaLOG 300 UNITS/3 ML VIAL SC PRN ×2 (11:05→22:36)
[2022-05-27 16:17] VITALS: BMI 27.9
[2022-05-27] MEDS ORDERED: Carvedilol 25 MG TAB PO SCH (17:00)
[2022-05-27] MEDS: Carvedilol 3.125 MG TAB PO SCH (17:01)
[2022-05-27] MEDS ORDERED: Benzonatate 100 MG CAP PO PRN (22:02)
[2022-05-28] MEDS: Furosemide 40 MG/4 ML VIAL SLOW IVP SCH ×2 (05:52→14:48)
[2022-05-28] MEDS: HumaLOG 300 UNITS/3 ML VIAL SC PRN ×3 (06:18→21:05)
[2022-05-28] MEDS: Heparin 5,000 UNITS/ML VIAL SC SCH ×3 (10:04→21:06)
[2022-05-28] MEDS: Spironolactone 25 MG TAB PO SCH (10:08)
[2022-05-28] MEDS: Aspirin Chewable 81 MG TAB PO SCH (10:08)
[2022-05-28] MEDS: Carvedilol 3.125 MG TAB PO SCH ×2 (10:08→16:29)
[2022-05-28] MEDS: Doxycycline 100 MG CAP PO SCH ×2 (10:09→21:05)
[2022-05-28] MEDS: cefTRIAXone\\ROCEPHIN 1 GM in Sodium Chloride 0.9% 100 ML IVPB SCH (10:09)
[2022-05-28] MEDS: Famotidine 20 MG TAB PO SCH ×2 (10:09→21:05)
[2022-05-28] MEDS ORDERED: Magnesium 2 GM/50 ML(in water) 2 GM in Premix Bag 1 BAG IVPB SCH (10:30)
[2022-05-28 11:41] LABS: #Eosinphils 0.2 thou/uL (0.0-0.7); #Lymphocytes 1.5 thou/uL (1.20-3.40); #Monocytes 0.6 thou/uL (0.11-0.59); #Neutrophils 5.1 thou/uL (1.40-6.50); %Basophils 0.6 % (0.0-1.0); %Lymphocytes 20.5 % (21.0-51.0); %Monocytes 8.4 % (0.0-10.0); %Neutrophils 68.5 % (42.0-75.0); Hemoglobin 13.6 g/dL (14.0-18.0); Mean Corpuscular HGB CONC 31.7 g/dL (32.0-36.0); Mean Corpuscular Hemoglobin 29.8 pg (27.0-31.0); Mean Corpuscular Volume 93.9 fl (78.0-98.0); Mean Platelet Volume 7.9 fL (7.4-10.4); Platelet Count 266 10x3/uL (130-400); RBC Distribution Width 13.4 % (11.5-14.5); Red Blood Cell (RBC) Count 4.57 mill/uL (4.70-6.10); White Blood Cell (WBC) Count 7.4 10x3/uL (4.8-10.8)
[2022-05-28 12:06] LABS: ALT (SGPT) 58 U/L (8-55); AST (SGOT) 43 U/L (5-34); Albumin 3.6 g/dL (3.5-5.0); Alkaline Phosphatase 357 U/L (40-110); Anion Gap 14 mmol/L (10-20); BUN (Urea Nitrogen) 35 mg/dL (8.9-20.6); Bilirubin, Total 1.1 mg/dL (0.2-1.2); Calc. Creatinine Clearance 74 mL/min (70-130); Calcium 9.1 mg/dL (7.8-10.44); Carbon Dioxide 29 mmol/L (22-29); Chloride 97 mmol/L (98-107); Estimated GFR 64; Globulin 3.7 g/dL (2.4-3.5); Glucose 210 mg/dL (70-105); Potassium 4.5 mmol/L (3.5-5.1); Protein, Total 7.3 g/dL (6.0-8.3)
[2022-05-28 12:18] LABS: Sodium 135 mmol/L (136-145)
[2022-05-28] MEDS: Insulin Glargine 30 UNITS/0.3 ML VIAL SC SCH (21:05)
[2022-05-29 05:12] LABS: #Eosinphils 0.2 thou/uL (0.0-0.7); #Lymphocytes 1.9 thou/uL (1.20-3.40); #Monocytes 0.8 thou/uL (0.11-0.59); #Neutrophils 4.2 thou/uL (1.40-6.50); %Basophils 0.5 % (0.0-1.0); %Eosinophils 2.2 % (0.0-10.0); %Monocytes 10.7 % (0.0-10.0); %Neutrophils 59.7 % (42.0-75.0); ALT (SGPT) 53 U/L (8-55); AST (SGOT) 31 U/L (5-34); Albumin 3.4 g/dL (3.5-5.0); Alkaline Phosphatase 337 U/L (40-110); Anion Gap 14 mmol/L (10-20); BUN (Urea Nitrogen) 35 mg/dL (8.9-20.6); Calc. Creatinine Clearance 75 mL/min (70-130); Calcium 9.1 mg/dL (7.8-10.44); Carbon Dioxide 25 mmol/L (22-29); Chloride 98 mmol/L (98-107); Estimated GFR 65; Globulin 3.4 g/dL (2.4-3.5); Glucose 271 mg/dL (70-105); Hemoglobin 12.8 g/dL (14.0-18.0); Mean Corpuscular HGB CONC 32.8 g/dL (32.0-36.0); Mean Corpuscular Hemoglobin 30.3 pg (27.0-31.0); Mean Corpuscular Volume 92.4 fl (78.0-98.0); Mean Platelet Volume 7.7 fL (7.4-10.4); Platelet Count 248 10x3/uL (130-400); Potassium 3.9 mmol/L (3.5-5.1); Protein, Total 6.8 g/dL (6.0-8.3); RBC Distribution Width 13.3 % (11.5-14.5); Red Blood Cell (RBC) Count 4.24 mill/uL (4.70-6.10); Sodium 133 mmol/L (136-145)
[2022-05-29 05:23] LABS: Bilirubin, Total 1.1 mg/dL (0.2-1.2)
[2022-05-29] MEDS: Furosemide 40 MG/4 ML VIAL SLOW IVP SCH ×2 (06:02→14:16)
[2022-05-29] MEDS: HumaLOG 300 UNITS/3 ML VIAL SC PRN ×4 (06:25→20:59)
[2022-05-29] MEDS: Spironolactone 25 MG TAB PO SCH (09:16)
[2022-05-29] MEDS: Aspirin Chewable 81 MG TAB PO SCH (09:16)
[2022-05-29] MEDS: Lisinopril 2.5 MG TAB PO SCH (09:16)
[2022-05-29] MEDS: Famotidine 20 MG TAB PO SCH ×2 (09:17→20:58)
[2022-05-29] MEDS: Carvedilol 3.125 MG TAB PO SCH ×2 (09:17→16:36)
[2022-05-29] MEDS: Insulin Glargine 30 UNITS/0.3 ML VIAL SC SCH (09:17)
[2022-05-29] MEDS: Heparin 5,000 UNITS/ML VIAL SC SCH (09:17)
[2022-05-29] MEDS: cefTRIAXone\\ROCEPHIN 1 GM in Sodium Chloride 0.9% 100 ML IVPB SCH (09:17)
[2022-05-29] MEDS: Doxycycline 100 MG CAP PO SCH ×2 (09:17→20:58)
[2022-05-29] MEDS ORDERED: Electrolyte Replacement Protocol 1 EACH FS SCH (14:15)
[2022-05-29] MEDS ORDERED: Insulin Glargine 30 UNITS/0.3 ML VIAL SC SCH (21:00)
[2022-05-30 05:31] LABS: ALT (SGPT) 57 U/L (8-55); AST (SGOT) 39 U/L (5-34); Albumin 3.4 g/dL (3.5-5.0); Alkaline Phosphatase 318 U/L (40-110); Anion Gap 14 mmol/L (10-20); BUN (Urea Nitrogen) 32 mg/dL (8.9-20.6); Bilirubin, Total 1.1 mg/dL (0.2-1.2); Calc. Creatinine Clearance 79 mL/min (70-130); Calcium 9.2 mg/dL (7.8-10.44); Carbon Dioxide 27 mmol/L (22-29); Chloride 99 mmol/L (98-107); Estimated GFR 69; Globulin 3.5 g/dL (2.4-3.5); Glucose 210 mg/dL (70-105); Magnesium 1.6 mg/dL (1.6-2.6); Potassium 4.1 mmol/L (3.5-5.1); Protein, Total 6.9 g/dL (6.0-8.3); Sodium 136 mmol/L (136-145)
[2022-05-30] MEDS: HumaLOG 300 UNITS/3 ML VIAL SC PRN (05:31)
[2022-05-30] MEDS: Furosemide 40 MG/4 ML VIAL SLOW IVP SCH (05:31)
[2022-05-30] MEDS ORDERED: Magnesium 2 GM/50 ML(in water) 2 GM in Premix Bag 1 BAG IVPB SCH (08:00)
[2022-05-30] MEDS ORDERED: Insulin Glargine 30 UNITS/0.3 ML VIAL SC SCH ×2 (09:30→21:00)
[2022-05-30] MEDS: cefTRIAXone\\ROCEPHIN 1 GM in Sodium Chloride 0.9% 100 ML IVPB SCH (11:13)
[2022-05-30] MEDS: Lisinopril 2.5 MG TAB PO SCH (11:17)
[2022-05-30] MEDS: Carvedilol 3.125 MG TAB PO SCH ×2 (11:17→18:23)
[2022-05-30] MEDS: Doxycycline 100 MG CAP PO SCH ×2 (11:18→21:04)
[2022-05-30] MEDS: Famotidine 20 MG TAB PO SCH ×2 (11:18→21:03)
[2022-05-30] MEDS: Aspirin Chewable 81 MG TAB PO SCH (11:19)
[2022-05-30] MEDS: Spironolactone 25 MG TAB PO SCH (11:19)
[2022-05-31] MEDS: HumaLOG 300 UNITS/3 ML VIAL SC PRN (05:57)
[2022-05-31 06:31] LABS: ALT (SGPT) 56 U/L (8-55); AST (SGOT) 42 U/L (5-34); Albumin 3.4 g/dL (3.5-5.0); Alkaline Phosphatase 310 U/L (40-110); Anion Gap 15 mmol/L (10-20); BUN (Urea Nitrogen) 30 mg/dL (8.9-20.6); Bilirubin, Total 0.9 mg/dL (0.2-1.2); Calc. Creatinine Clearance 84 mL/min (70-130); Calcium 8.8 mg/dL (7.8-10.44); Carbon Dioxide 25 mmol/L (22-29); Chloride 97 mmol/L (98-107); Estimated GFR 76; Globulin 3.8 g/dL (2.4-3.5); Glucose 313 mg/dL (70-105); Magnesium 1.9 mg/dL (1.6-2.6); Potassium 4.6 mmol/L (3.5-5.1); Protein, Total 7.2 g/dL (6.0-8.3); Sodium 132 mmol/L (136-145)
[2022-05-31] MEDS ORDERED: Furosemide 40 MG TAB PO SCH (07:30)
[2022-05-31] MEDS ORDERED: Magnesium 2 GM/50 ML(in water) 2 GM in Premix Bag 1 BAG IVPB SCH (08:00)
[2022-05-31] MEDS ORDERED: Insulin Glargine 30 UNITS/0.3 ML VIAL SC SCH (09:00)
[2022-05-31] MEDS: Carvedilol 3.125 MG TAB PO SCH (09:18)
[2022-05-31] MEDS: Lisinopril 2.5 MG TAB PO SCH (09:18)
[2022-05-31] MEDS: Spironolactone 25 MG TAB PO SCH (09:19)
[2022-05-31] MEDS: Doxycycline 100 MG CAP PO SCH (09:19)
[2022-05-31] MEDS: cefTRIAXone\\ROCEPHIN 1 GM in Sodium Chloride 0.9% 100 ML IVPB SCH (09:20)
[2022-05-31] MEDS: Famotidine 20 MG TAB PO SCH (09:32)
[2022-05-31] MEDS: Aspirin Chewable 81 MG TAB PO SCH (09:33)
[2022-05-31] MEDS ORDERED: HumaLOG 300 UNITS/3 ML VIAL SC PRN (09:48)
[2022-05-31 12:17] VITALS: BP 99/68; TEMP 97.7
== END 2022-05-31 12:40 | disposition home or self-care (01) | DRG 177 ==
LOC: ERS 13:47 → ERHOLD 18:48 → OBSVTOIN 20:43 → 2NO 05-27 15:51
PROVIDERS: ADMIT Student in an Organized Health Care Education/Training Program; ATTEND Internal Medicine
DX: J15.6 Pneumonia due to other Gram-negative bacteria (principal); I50.23 Acute on chronic systolic (congestive) heart failure; I13.0 Hypertensive heart and chronic kidney disease with heart failure and stage 1 through stage 4 chronic kidney disease, or unspecified chronic kidney disease; E87.1 Hypo-osmolality and hyponatremia; N17.9 Acute kidney failure, unspecified; I42.8 Other cardiomyopathies; N18.2 Chronic kidney disease, stage 2 (mild); D63.1 Anemia in chronic kidney disease; K76.1 Chronic passive congestion of liver; E78.5 Hyperlipidemia, unspecified; E11.22 Type 2 diabetes mellitus with diabetic chronic kidney disease; R74.01 Elevation of levels of liver transaminase levels; Z79.82 Long term (current) use of aspirin; Z98.890 Other specified postprocedural states; Z79.4 Long term (current) use of insulin; Z79.899 Other long term (current) drug therapy
CPT/HCPCS: 36415; 36416; 71046; 76705; 80053; 83605; 83735; 83880; 84484; 85025; 87040; 93005; 93306; 93798; 96365; 96367; 96375; J0456; J0696; J1644; J1815; J1940; J3475; J3490

== ENCOUNTER 2022-06-30 05:03 | Emergency (ER) | payer SELFPAY ==
[~2022-06-30 05:03] MED LIST: Lidocaine Viscous Sol 2% 15 ml UD Cup ONE; Mag-Al 1200 mg/1200 mg/30 ML UDCUP ONE
[2022-06-30 05:17] LABS: #Eosinphils 0.1 thou/uL (0.0-0.7); #Lymphocytes 1.8 thou/uL (1.20-3.40); #Monocytes 0.5 thou/uL (0.11-0.59); #Neutrophils 3.3 thou/uL (1.40-6.50); %Basophils 0.6 % (0.0-1.0); %Eosinophils 1.2 % (0.0-10.0); %Lymphocytes 31.4 % (21.0-51.0); %Monocytes 9.4 % (0.0-10.0); %Neutrophils 57.6 % (42.0-75.0); Hemoglobin 13.5 g/dL (14.0-18.0); Mean Corpuscular HGB CONC 33.3 g/dL (32.0-36.0); Mean Corpuscular Hemoglobin 30.5 pg (27.0-31.0); Mean Corpuscular Volume 91.4 fl (78.0-98.0); Mean Platelet Volume 8.2 fL (7.4-10.4); Platelet Count 214 10x3/uL (130-400); RBC Distribution Width 13.9 % (11.5-14.5); Red Blood Cell (RBC) Count 4.44 mill/uL (4.70-6.10); White Blood Cell (WBC) Count 5.8 10x3/uL (4.8-10.8)
[2022-06-30 05:28] LABS: ALT (SGPT) 66 U/L (8-55); AST (SGOT) 42 U/L (5-34); Albumin 3.9 g/dL (3.5-5.0); Alkaline Phosphatase 335 U/L (40-110); Anion Gap 14 mmol/L (10-20); BUN (Urea Nitrogen) 38 mg/dL (8.9-20.6); Bilirubin, Total 2.3 mg/dL (0.2-1.2); Calc. Creatinine Clearance 0 mL/min (70-130); Calcium 9.5 mg/dL (7.8-10.44); Carbon Dioxide 24 mmol/L (22-29); Chloride 102 mmol/L (98-107); Estimated GFR 68; Globulin 3.7 g/dL (2.4-3.5); Glucose 138 mg/dL (70-105); Lipase 16 U/L (8-78); Potassium 4.3 mmol/L (3.5-5.1); Protein, Total 7.6 g/dL (6.0-8.3); Sodium 136 mmol/L (136-145)
[2022-06-30 07:46] LABS: Bacteria/HPF None Seen HPF (None Seen); Bilirubin Negative (Negative); Blood, Urine Trace (Negative); Clarity Clear (Clear); Glucose, Urine (Dipstick) Normal (Negative); Ketone, Urine Negative (Negative); Leukocyte Negative Leu/uL (Negative); Nitrite Negative (Negative); Protein, Urine (Dipstick) 50 mg/dL (Neg-Trace); RBC/HPF 0-3 HPF (0-3); Specific Gravity, Urine 1.014 (1.002-1.036); Squamous Epithelial None Seen HPF (0-3); Urobilinogen 3 mg/dL (Less than 2); WBC/HPF 0-3 HPF (0-3); pH, Urine 5.5 (5.0-9.0)
[2022-06-30 07:48] LABS: Sperm/HPF 3+ HPF (None Seen)
== END 2022-06-30 06:49 | disposition home or self-care (01) ==
LOC: ERS 05:03
DX: R05.9 Cough, unspecified (principal); R10.11 Right upper quadrant pain; I50.9 Heart failure, unspecified; E11.9 Type 2 diabetes mellitus without complications
CPT/HCPCS: 71045; 76705; 80053; 81003; 81015; 83690; 85025

== ENCOUNTER 2022-07-12 13:48 | Emergency (ER) | payer SELFPAY ==
[2022-07-12 14:53] LABS: #Basophils 0.1 thou/uL (0.0-0.2); #Eosinphils 0.1 thou/uL (0.0-0.7); #Lymphocytes 1.3 thou/uL (1.20-3.40); #Monocytes 0.5 thou/uL (0.11-0.59); #Neutrophils 3.6 thou/uL (1.40-6.50); %Basophils 1.1 % (0.0-1.0); %Eosinophils 1.8 % (0.0-10.0); %Lymphocytes 23.2 % (21.0-51.0); %Monocytes 8.5 % (0.0-10.0); %Neutrophils 65.5 % (42.0-75.0); Hemoglobin 14.2 g/dL (14.0-18.0); Mean Corpuscular HGB CONC 32.3 g/dL (32.0-36.0); Mean Corpuscular Hemoglobin 30.1 pg (27.0-31.0); Mean Corpuscular Volume 93.4 fl (78.0-98.0); Mean Platelet Volume 7.3 fL (7.4-10.4); Platelet Count 280 10x3/uL (130-400); RBC Distribution Width 14.2 % (11.5-14.5); Red Blood Cell (RBC) Count 4.73 mill/uL (4.70-6.10); White Blood Cell (WBC) Count 5.6 10x3/uL (4.8-10.8)
[2022-07-12 16:24] LABS: ALT (SGPT) 65 U/L (8-55); AST (SGOT) 60 U/L (5-34); Albumin 3.7 g/dL (3.5-5.0); Alkaline Phosphatase 306 U/L (40-110); Anion Gap 17 mmol/L (10-20); BUN (Urea Nitrogen) 32 mg/dL (8.9-20.6); Bilirubin, Total 1.8 mg/dL (0.2-1.2); Calc. Creatinine Clearance 0 mL/min (70-130); Calcium 9.6 mg/dL (7.8-10.44); Carbon Dioxide 25 mmol/L (22-29); Chloride 100 mmol/L (98-107); Estimated GFR 82; Globulin 3.9 g/dL (2.4-3.5); Glucose 234 mg/dL (70-105); Potassium 4.7 mmol/L (3.5-5.1); Protein, Total 7.6 g/dL (6.0-8.3); Sodium 137 mmol/L (136-145)
== END 2022-07-12 17:32 | disposition home or self-care (01) ==
LOC: ERS 13:48
DX: I50.9 Heart failure, unspecified (principal); R74.01 Elevation of levels of liver transaminase levels; E11.9 Type 2 diabetes mellitus without complications; Z79.4 Long term (current) use of insulin; Z79.899 Other long term (current) drug therapy
CPT/HCPCS: 36415; 71045; 80053; 83880; 84484; 85025; 93005; 94760

== ENCOUNTER 2022-10-18 09:06 | Inpatient (IN) | payer OTHER, SELFPAY ==
[2022-10-18] MEDS ORDERED: cefTRIAXone (ROCEPHIN) 1 GM VIAL ONE (09:58)
[2022-10-18] MEDS ORDERED: Ibuprofen 800 MG TAB ONE (09:58)
[2022-10-18] MEDS ORDERED: Acetaminophen 500 MG TAB ONE (09:58)
[2022-10-18 10:52] LABS: #Monocytes 0.9 thou/uL (0.11-0.59); #Neutrophils 8.8 thou/uL (1.40-6.50); %Basophils 0.3 % (0.0-1.0); %Eosinophils 0.4 % (0.0-10.0); %Neutrophils 79.7 % (42.0-75.0); Hemoglobin 12.9 g/dL (14.0-18.0); Mean Corpuscular HGB CONC 32.3 g/dL (32.0-36.0); Mean Corpuscular Hemoglobin 28.7 pg (27.0-31.0); Mean Corpuscular Volume 88.7 fl (78.0-98.0); Mean Platelet Volume 10.6 fL (7.4-10.4); Platelet Count 278 10x3/uL (130-400); RBC Distribution Width 17.2 % (11.5-14.5); White Blood Cell (WBC) Count 11.1 10x3/uL (4.8-10.8)
[2022-10-18] MEDS ORDERED: Azithromycin 500 MG VIAL ONE (11:00)
[2022-10-18 11:08] LABS: ALT (SGPT) 53 U/L (8-55); AST (SGOT) 36 U/L (5-34); Albumin 3.9 g/dL (3.5-5.0); Alkaline Phosphatase 531 U/L (40-110); Anion Gap 17 mmol/L (10-20); BUN (Urea Nitrogen) 29 mg/dL (8.9-20.6); Bilirubin, Total 2.7 mg/dL (0.2-1.2); Calc. Creatinine Clearance 0 mL/min (70-130); Calcium 9.6 mg/dL (7.8-10.44); Carbon Dioxide 23 mmol/L (22-29); Chloride 100 mmol/L (98-107); Estimated GFR 61; Globulin 3.8 g/dL (2.4-3.5); Glucose 121 mg/dL (70-105); Potassium 4.2 mmol/L (3.5-5.1); Protein, Total 7.7 g/dL (6.0-8.3); Sodium 136 mmol/L (136-145)
[2022-10-18] MEDS ORDERED: Acetaminophen 325 MG TAB PO PRN (12:30)
[2022-10-18] MEDS ORDERED: Ondansetron PF 4 MG/2 ML Vial IVP PRN (12:30)
[2022-10-18] MEDS ORDERED: Ondansetron ODT 4 MG TAB PO PRN (12:30)
[2022-10-18 12:31] LABS: HBCM Index 0.07 S/CO (0-0.79); HBSAg Index 0.22 S/CO (0-0.99); Hep A IgM AB Non-Reactive S/CO (NonReactive); Hep A IgM S/CO 0.18 S/CO (0-0.79); Hep B Surf Ag Non-Reactive S/CO (NonReactive); Hep C IgG Ab Non-Reactive S/CO (NonReactive); Hep C Index 0.08 S/CO (0-0.79); Hepatitis B Core IgM Abs Non-Reactive S/CO (NonReactive)
[2022-10-18] MEDS ORDERED: Dextrose 50% Abboject 50 ML SYRINGE SLOW IVP PRN (12:35)
[2022-10-18] MEDS ORDERED: HumaLOG 300 UNITS/3 ML VIAL SC PRN ×2 (12:35)
[2022-10-18] MEDS ORDERED: Dextrose 5% in Water 1,000 ML IV PRN (12:35)
[2022-10-18 13:25] LABS: Hemoglobin A1c 8.9 % (4.0-6.0)
[2022-10-18 14:05] LABS: Magnesium 1.7 mg/dL (1.6-2.6)
[2022-10-19 08:20] LABS: #Eosinphils 0.1 thou/uL (0.0-0.7); #Monocytes 0.6 thou/uL (0.11-0.59); #Neutrophils 5.4 thou/uL (1.40-6.50); %Basophils 0.5 % (0.0-1.0); %Eosinophils 1.2 % (0.0-10.0); %Lymphocytes 18.6 % (21.0-51.0); %Monocytes 7.5 % (0.0-10.0); %Neutrophils 72.1 % (42.0-75.0); Hemoglobin 12.1 g/dL (14.0-18.0); Mean Corpuscular HGB CONC 31.2 g/dL (32.0-36.0); Mean Corpuscular Hemoglobin 28.6 pg (27.0-31.0); Mean Platelet Volume 10.1 fL (7.4-10.4); Platelet Count 238 10x3/uL (130-400); RBC Distribution Width 17.3 % (11.5-14.5); Red Blood Cell (RBC) Count 4.23 mill/uL (4.70-6.10); White Blood Cell (WBC) Count 7.5 10x3/uL (4.8-10.8)
[2022-10-19 08:27] LABS: Mean Corpuscular Volume 91.7 fl (78.0-98.0)
[2022-10-19 08:42] LABS: ALT (SGPT) 42 U/L (8-55); AST (SGOT) 26 U/L (5-34); Albumin 3.5 g/dL (3.5-5.0); Alkaline Phosphatase 459 U/L (40-110); Anion Gap 14 mmol/L (10-20); BUN (Urea Nitrogen) 33 mg/dL (8.9-20.6); Bilirubin, Total 1.8 mg/dL (0.2-1.2); Calc. Creatinine Clearance 74 mL/min (70-130); Calcium 8.8 mg/dL (7.8-10.44); Carbon Dioxide 26 mmol/L (22-29); Chloride 103 mmol/L (98-107); Estimated GFR 63; Globulin 3.4 g/dL (2.4-3.5); Glucose 107 mg/dL (70-105); Potassium 3.8 mmol/L (3.5-5.1); Protein, Total 6.9 g/dL (6.0-8.3); Sodium 139 mmol/L (136-145)
[2022-10-19] MEDS ORDERED: cefTRIAXone\\ROCEPHIN 1 GM in Sodium Chloride 0.9% 100 ML IVPB SCH (12:00)
[2022-10-19 12:03] VITALS: BP 114/82; TEMP 97.5
[2022-10-19] MEDS ORDERED: Azithromycin 500 MG in Sodium Chloride 0.9% 250 ML 250 ML IVPB SCH (13:00)
[2022-10-19] MEDS ORDERED: Carvedilol 3.125 MG TAB PO SCH (17:00)
[2022-10-20] MEDS ORDERED: Atorvastatin Calcium 40 MG TAB PO SCH (09:00)
== END 2022-10-19 12:30 | disposition home or self-care (01) | DRG 871 ==
LOC: ERS 09:06 → 2NO 13:52
PROVIDERS: ADMIT Internal Medicine; ATTEND Internal Medicine
DX: A41.9 Sepsis, unspecified organism (principal); J18.9 Pneumonia, unspecified organism; I13.0 Hypertensive heart and chronic kidney disease with heart failure and stage 1 through stage 4 chronic kidney disease, or unspecified chronic kidney disease; I50.22 Chronic systolic (congestive) heart failure; N17.9 Acute kidney failure, unspecified; J40 Bronchitis, not specified as acute or chronic; I11.0 Hypertensive heart disease with heart failure; E11.22 Type 2 diabetes mellitus with diabetic chronic kidney disease; R74.01 Elevation of levels of liver transaminase levels; N18.9 Chronic kidney disease, unspecified; Z79.4 Long term (current) use of insulin; Z79.899 Other long term (current) drug therapy; Z79.82 Long term (current) use of aspirin
CPT/HCPCS: 36415; 36416; 71045; 76705; 80053; 80074; 83036; 83605; 83735; 83880; 85025; 87040; 93005; 96365; 96366; 96367; J0456; J0696